=== PATIENT | female | born 1995 | race Caucasian/White ===

== ENCOUNTER 2018-01-14 19:52 | Emergency (ER) | payer OTHER | END 2018-01-14 21:45 | disposition home or self-care (01) | LOC: SCSER 19:52 | DX: L03.116 Cellulitis of left lower limb (principal); L73.9 Follicular disorder, unspecified | CPT/HCPCS: 99282 ==

== ENCOUNTER 2020-06-20 03:03 | Emergency (ER) | payer OTHER, SELFPAY ==
[2020-06-20] MEDS ORDERED: Boostrix 0.5 ML VIAL ONE (03:58)
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
--- NOTE | 2020-06-20 09:23 | RAD ---
LEFT CLAVICLE TWO VIEWS: HISTORY: Trauma. FINDINGS: There is a transverse mildly displaced fracture mid left clavicle. AC joint appears normally aligned. No other abnormality seen. IMPRESSION: Fracture left clavicle. POS: AGW
--- NOTE | 2020-06-20 09:30 | RAD ---
PORTABLE CHEST: HISTORY: Trauma. FINDINGS: Fracture left clavicle. FINDINGS: The lungs appear clear. No pneumothorax. Heart and mediastinum unremarkable. Osseous structures other alberts appear intact. IMPRESSION: Fracture left clavicle. No acute lung process identified. POS: AGW
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
== END 2020-06-20 04:20 | disposition home or self-care (01) ==
LOC: ERS 03:03
DX: S06.0X9A Concussion with loss of consciousness of unspecified duration, initial encounter (principal); S42.022A Displaced fracture of shaft of left clavicle, initial encounter for closed fracture; S00.81XA Abrasion of other part of head, initial encounter; Z23 Encounter for immunization; V86.99XA Unspecified occupant of other special all-terrain or other off-road motor vehicle injured in nontraffic accident, initial encounter
CPT/HCPCS: 70450; 71045; 72125; 90471; 90715